=== PATIENT | female | born 1980 | race Caucasian/White ===

== ENCOUNTER 2016-04-02 12:32 | Emergency (ER) | payer OTHER ==
[~2016-04-02] VITALS: Ht 167.6 cm; Wt 200.5 kg
[~2016-04-02 12:32] MED LIST: LORA10CA PO; PROMETHAZINE; RTPRO5 IH
[2016-04-02 12:42] VITALS: Ht 167.6 cm; Wt 200.5 kg
--- NOTE | 2016-04-02 14:01 | ERD ---
ER Documentation Chief Complaint Date/Time DATE: 04/02/16 TIME: 13:59 Chief Complaint PRODUCTIVE COUGH X3 WEEKS HPI 36-year-old female who presents with dry and slightly productive cough for approximately 3 weeks. Patient describes persistence of symptoms and persistent cough with rhinorrhea and nasal congestion. The patient does have some mild chest wall pain with coughing. She denies any dyspnea on exertion, PND or lower extremity swelling. The patient does have a history of heart failure with an ejection fraction of 30%. However she states compliance with medications and denies any lower extremity swelling. No reported fevers. Symptoms similar to son. ROS All systems reviewed and are negative except as per history of present illness. Medications Home Meds Reported Medications Loratadine* (Claritin*) 10 Mg Capsule, 10 MG PO PRN 08/06/12 [Promethazxine] No Conflict Check 08/06/12 Albuterol Sulfate* (Proventil* Neb) 0.5 Ml Nebu, 0.5 ML IH 08/06/12 Allergies Allergies: Coded Allergies: No Known Allergies (Verified Allergy, 08/06/12) PMhx/Soc History of Surgery: Yes ( X3 IN 1997,2000,2006) Anesthesia Reaction: No Hx Neurological Disorder: No Hx Respiratory Disorders: No Hx Cardiac Disorders: No Hx Psychiatric Problems: No Hx Miscellaneous Medical Probl: No Hx Alcohol Use: Yes (SOCIAL AT TIMES) Hx Substance Use: No Hx Tobacco Use: Yes (3 CIGARETTE/D. LAST TIME WAS 4YRS AGO) Smoking Status: Former smoker FmHx Family History: No diabetes Physical Exam Vitals Vital Signs Date Time Temp Pulse Resp B/P Pulse Ox O2 Delivery O2 Flow Rate FiO2 04/02/16 12:42 98.1 99 18 134/78 98 Physical Exam General: Well developed, well nourished, no acute distress Head: Normocephalic, atraumatic. Eyes: Pupils equally reactive, EOM intact ENT: Moist mucous membranes Neck: Supple, no lymphadenopathy Respiratory: Scant wheezing but good aeration, no rales at the bases Cardiovascular: RRR, no murmurs, rubs, or gallops Abdominal: Soft, non-tender, non-distended, no peritoneal signs : Deferred MSK: No edema, no unilateral swelling, 5/5 strength Neurologic: Alert and oriented, moving all extremities, normal speech, no focal weakness, no cerebellar signs Skin: No rash Psych: Normal mood Procedures/MDM EKG, MONITORS, & DIAGNOSTIC IMAGING: Chest x-ray: I reviewed and interpreted a 1 view of the chest Mediastinum: No enlargement Cardiac silhouette: Mild cardiomegaly Airspace: Clear lung wilkes bilaterally without evidence of pneumothorax Bones: No evidence of fracture Radiology Read: IMPRESSION: Suggestion of a patchy hazy opacity in the left lung base which may be traveling sales representative of a earlier resolving infiltrate RPTAT: QQ MEDICAL DECISION MAKING: The patient's cough is most consistent with likely acute bronchitis and viral process. However, the patient does have a history of heart failure with an EF of 30%. The patient does not exhibit alternative signs of heart failure including no JVD, no dyspnea on exertion, no PND, no significant lower extremity swelling. The patient states compliance with her medications. This is again more consistent with likely viral process. I do not believe the laboratory testing is necessary. Chest x-ray would be reasonable. ER COURSE: The patient's chest x-ray does not fit with decompensated congestive heart failure. Question possible infiltrate versus resolving infiltrate. The patient will be started on azithromycin. At this time the patient is safe for discharge home. I did discuss return precautions for worsening shortness of breath, signs of heart failure or difficulty breathing. I kept the patient and/or family informed of laboratory and diagnostic imaging results throughout the emergency room course. DISPOSITION PLAN: We discussed follow up with the patient's primary care doctor within 24 to 48 hours as needed. We also discussed return to the emergency room for worsening symptoms or worsening condition. Discharge Medications: Azithromycin, Ventolin Departure Diagnosis: Primary Impression: Acute bronchitis Bronchitis organism: unspecified organism Qualified Code: J20.9 - Acute bronchitis, unspecified organism Additional Impression: Morbid obesity Obesity type: unspecified obesity type Qualified Code: E66.01 - Morbid obesity, unspecified obesity type Condition: SHERRY Benavidez MD Apr 02, 2016 14:01
--- NOTE | 2016-04-02 14:17 | RADRPT ---
PROCEDURE: XR Chest. CLINICAL INDICATION: Cough TECHNIQUE: AP view of the chest was performed. COMPARISON: 08/10/2012 FINDINGS: There is suggestion of a hazy opacity in the left lung base which may be circulation sales representative of an earlie r resolving infiltrate. The lung volumes are normal. The heart size is normal. The osseous struct ures are intact. IMPRESSION: Suggestion of a patchy hazy opacity in the left lung base which may be circulation sales representative of a earlier r esolving infiltrate RPTAT: QQ .Zaheer King MD, Date Time Electronically viewed and signed by .Zaheer King MD, on 04/02/2016 14:17 .M/
[2016-04-02] MEDS ORDERED: AZIT250T94 PO (14:23)
[2016-04-02] MEDS ORDERED: ALBU18HF INHALATION (14:23)
[2016-04-02] MEDS ORDERED: HYDR-3652 PO (14:25)
== END 2016-04-02 14:40 | disposition home or self-care (01) ==
LOC: FTE 12:32
DX: J20.9 Acute bronchitis, unspecified (principal); E66.01 Morbid (severe) obesity due to excess calories; I50.9 Heart failure, unspecified; Z68.45 Body mass index [BMI] 70 or greater, adult; Z87.891 Personal history of nicotine dependence
CPT/HCPCS: 71010; Z7502

== ENCOUNTER 2016-07-19 17:09 | Emergency (ER) | payer OTHER ==
[~2016-07-19] VITALS: Ht 172.7 cm; Wt 212.5 kg
[~2016-07-19 17:09] MED LIST changes: +ALBU18HF INHALATION; +AZIT250T94 PO; +HYDR-3652 PO
[2016-07-19 17:28] VITALS: Ht 172.7 cm; Wt 212.5 kg
[2016-07-19] MEDS ORDERED: ALBUTEROL 0.083% (NEB) 2.5 MG/3 ML AMP HHN STA (19:11)
[2016-07-19] MEDS ORDERED: IPRATROPIUM (NEB) 0.5 MG/2.5 ML AMP HHN ONE (19:30)
--- NOTE | 2016-07-19 19:37 | RADRPT ---
PROCEDURE: Chest x-ray CLINICAL INDICATION: Shortness of breath TECHNIQUE: Chest single view COMPARISON: None FINDINGS: There is stable mild cardiomegaly. Pulmonary vessels are borderline prominent. No confluent pneumo alannah seen. Costophrenic angles are sharp. IMPRESSION: 1. Stable mild cardiomegaly. 2. Pulmonary vessels borderline prominent RPTAT: HH .Jose Green MD, Date Time Electronically viewed and signed by .Jose Green MD, on 07/19/2016 19:37 .W/
[2016-07-19 20:05] LABS: ADD SCAN DIFF NO
[2016-07-19 20:16] LABS: INR 0.94; PROTIME 12.6 Sec (12.2-14.2)
[2016-07-19 20:17] LABS: ALBUMIN 3.6 g/dl (3.3-4.9); PARTIAL THROMBOPLASTIN TIME 23.5 Sec (25.0-35.0)
[2016-07-19 20:18] LABS: CHLORIDE 94 mmol/L (97-110); POTASSIUM 3.7 mmol/L (3.5-5.1); SODIUM 138 mmol/L (135-144)
[2016-07-19 20:20] LABS: ANION GAP 15 (8-16); BILIRUBIN,INDIRECT 0.3 mg/dl (0-1.1); BILIRUBIN,TOTAL 0.3 mg/dl (0.2-1.3); CARBON DIOXIDE 33 mmol/L (21-31); CREATININE 0.47 mg/dl (0.44-1.00)
[2016-07-19 20:21] LABS: ALANINE AMINOTRANSFERASE 29 IU/L (13-69); ALBUMIN/GLOBULIN RATIO 0.87; ALKALINE PHOSPHATASE 132 IU/L (42-121); ASPARTATE AMINO TRANSFERASE 25 IU/L (15-46); BASOPHILS % 0.3 % (0.0-2.0); BLOOD UREA NITROGEN 10 mg/dl (7-20); CALCIUM 8.8 mg/dl (8.4-10.2); EOSINOPHILS # 0.2 10^3/ul (0.0-0.5); EOSINOPHILS % 1.8 % (0.0-7.0); GLUCOSE 262 mg/dl (70-220); HEMATOCRIT 41.2 % (37.0-47.0); HEMOGLOBIN 13.2 g/dl (12.0-16.0); LYMPHOCYTES # 2.3 10^3/ul (0.8-2.9); LYMPHOCYTES % 24.5 % (15.0-51.0); MEAN CORPUSCULAR HEMOGLOBIN 30.8 pg (29.0-33.0); MEAN PLATELET VOLUME 11.5 fl (7.4-10.4); MONOCYTE # 0.6 10^3/ul (0.3-0.9); NEUTROPHIL # 6.3 10^3/ul (1.6-7.5); NEUTROPHILS % 66.5 % (39.0-77.0); PLATELET COUNT 293 10^3/UL (140-415); RED BLOOD COUNT 4.29 10^6/ul (4.20-5.40); RED CELL DISTRIBUTION WIDTH 13.5 % (11.5-14.5); TOTAL PROTEIN 7.7 g/dl (6.1-8.1); WHITE BLOOD COUNT 9.4 10^3/ul (4.8-10.8)
[2016-07-19 20:30] LABS: B-TYPE NATRIURETIC PEPTIDE 194 PG/ML (0-125)
[2016-07-19 20:44] LABS: TROPONIN-I < 0.012 ng/ml (0.00-0.12)
[2016-07-19] MEDS ORDERED: FURO-109 PO (20:52)
[2016-07-19] MEDS ORDERED: DILT240C79 PO (20:52)
[2016-07-19] MEDS ORDERED: MTF1000T PO (20:53)
[2016-07-19] MEDS ORDERED: GLIP-95 PO (20:53)
[2016-07-19] MEDS ORDERED: CARV25TA79 PO (20:54)
[2016-07-19] MEDS ORDERED: SPIR100T31 PO (20:54)
[2016-07-19] MEDS ORDERED: BENA10TA48 PO (20:55)
[2016-07-19] MEDS ORDERED: ASPI81TA3 PO (20:55)
[2016-07-19] MEDS ORDERED: FUROSEMIDE 20 MG TAB PO ONE (21:00)
[2016-07-19 21:15] VITALS: BP 165/96; PULSE 94; RESP 22
--- NOTE | 2016-07-20 02:08 | ERD ---
ER Documentation Chief Complaint Date/Time DATE: 07/20/16 TIME: 02:05 Chief Complaint SOB, COUGH X1MTH, NEED MED REFIL HPI This is a 36-year-old female that is morbidly obese and has a past medical history of congestive heart failure, diabetes, hypertension. Patient has run out of her medications and states that she has began to feel bilateral leg swelling. Patient also has a chronic cough. Cough is dry and constant. Patient states that her shortness of breath is worse whenever she is walking or whenever she leans back. Patient does have orthopnea and uses 2 pillows at night. Patient denies any fevers or chills. She denies any recent travel. She is not taking oral contraceptives. ROS 12 point review of systems was done, all negative except per HPI. Medications Home Meds Active Scripts Aspirin* (Aspirin* Chew) 81 Mg Tab.chew, 81 MG PO DAILY for 20 Days, TAB.CHEW Prov:PAOLA ENG 07/19/16 Benazepril Hcl* (Benazepril Hcl*) 10 Mg Tablet, 10 MG PO DAILY, #20 TAB Prov:PAOLA ENG 07/19/16 Carvedilol* (Carvedilol*) 25 Mg Tablet, 25 MG PO BID, #40 TAB Prov:PAOLA ENG 07/19/16 Spironolactone* (Spironolactone*) 100 Mg Tablet, 100 MG PO BID for 20 Days, TAB Prov:PAOLA ENG 07/19/16 Metformin* (Glucophage*) 1,000 Mg Tablet, 1000 MG PO BID, #40 TAB Prov:PAOLA ENG 07/19/16 Glipizide* (Glipizide*) 10 Mg Tablet, 10 MG PO AC BREAKFAST for 20 Days, TAB Prov:PAOLA ENG 07/19/16 Diltiazem Hcl* (Cardizem CD*) 240 Mg Cap.sr.24h, 240 MG PO DAILY, #15 CAP Prov:PAOLA ENG 07/19/16 Furosemide* (Lasix*) 40 Mg Tablet, 40 MG PO BID, #20 TAB Prov:PAOLA ENG 07/19/16 Hydrocodone Bit/Homatrop Me-Br ([place] 5-1.5 mg Tablet) 1 Each Tablet, 1 EACH PO BID Y for COUGH, #10 TAB Prov:SHERRY GRAF MD 04/02/16 Azithromycin* (Zithromax*) 250 Mg Tablet, 250 MG PO .ZPACK DIRECTED, #6 TAB TAKE 500 MG (2 TABS) THE FIRST DAY THEN 250 MG (1 TAB) DAYS 2-5 Prov:SHERRY GRAF MD 04/02/16 Albuterol Sulfate* (Ventolin HFA*) 18 Gm Hfa.aer.ad, 2 PUFF INHALATION Q4H, #1 INHALER Prov:SHERRY GRAF MD 04/02/16 Reported Medications Loratadine* (Claritin*) 10 Mg Capsule, 10 MG PO PRN 08/06/12 [Promethazxine] No Conflict Check 08/06/12 Albuterol Sulfate* (Proventil* Neb) 0.5 Ml Nebu, 0.5 ML IH 08/06/12 Allergies Allergies: Coded Allergies: No Known Allergies (Verified Allergy, 08/06/12) PMhx/Soc History of Surgery: Yes ( X3 IN 1997,2000,2006) Anesthesia Reaction: No Hx Neurological Disorder: No Hx Respiratory Disorders: No Hx Cardiac Disorders: Yes (HTN, chf) Hx Psychiatric Problems: No Hx Miscellaneous Medical Probl: Yes (DM) Hx Alcohol Use: Yes (SOCIAL AT TIMES) Hx Substance Use: No Hx Tobacco Use: Yes (3 CIGARETTE/D. LAST TIME WAS 4YRS AGO) Smoking Status: Former smoker Physical Exam Vitals Vital Signs Date Time Temp Pulse Resp B/P Pulse Ox O2 Delivery O2 Flow Rate FiO2 07/19/16 21:15 94 22 165/96 94 Room Air 07/19/16 20:06 Non Rebreather 07/19/16 19:39 100 24 98 21 07/19/16 17:28 98.6 110 22 174/104 94 Physical Exam Const: [] Head: Atraumatic Eyes: Normal Conjunctiva ENT: Normal External Ears, Nose and Mouth. Neck: Full range of motion..~ No meningismus. Resp: Clear to auscultation bilaterally Cardio: Regular rate and rhythm, no murmurs Abd: Soft, non tender, non distended. Normal bowel sounds Skin: No petechiae or rashes Back: No midline or flank tenderness Ext: +2 pitting edema bilaterally. No calf redness or tenderness. Neur: Awake and alert Psych: Normal Mood and Affect Result Diagram: 07/19/16195007/19/161950 Results 24 hrs Laboratory Tests Test 07/19/16 19:51 White Blood Count 9.410^3/ul Red Blood Count 4.2910^6/ul Hemoglobin 13.2g/dl Hematocrit 41.2% Mean Corpuscular Volume 96.0fl Mean Corpuscular Hemoglobin 30.8pg Mean Corpuscular Hemoglobin Concent 32.0g/dl Red Cell Distribution Width 13.5% Platelet Count 25597^3/UL Mean Platelet Volume 11.5fl Neutrophils % 66.5% Lymphocytes % 24.5% Monocytes % 6.0% Eosinophils % 1.8% Basophils % 0.3% Nucleated Red Blood Cells % 0.0/100WBC Neutrophils # 6.310^3/ul Lymphocytes # 2.310^3/ul Monocytes # 0.610^3/ul Eosinophils # 0.210^3/ul Basophils # 0.010^3/ul Nucleated Red Blood Cells # 0.010^3/ul Prothrombin Time 12.6Sec Prothrombin Time Ratio 1.0 INR International Normalized Ratio 0.94 Activated Partial Thromboplast Time 23.5Sec Sodium Level 138mmol/L Potassium Level 3.7mmol/L Chloride Level 94mmol/L Carbon Dioxide Level 33mmol/L Anion Gap 15 Blood Urea Nitrogen 10mg/dl Creatinine 0.47mg/dl Glucose Level 262mg/dl Calcium Level 8.8mg/dl Total Bilirubin 0.3mg/dl Direct Bilirubin 0.00mg/dl Indirect Bilirubin 0.3mg/dl Aspartate Amino Transf (AST/SGOT) 25IU/L Alanine Aminotransferase (ALT/SGPT) 29IU/L Alkaline Phosphatase 132IU/L Troponin I < 0.012ng/ml B-Type Natriuretic Peptide 194PG/ML Total Protein 7.7g/dl Albumin 3.6g/dl Globulin 4.10g/dl Albumin/Globulin Ratio 0.87 Current Medications Medications (Trade) Dose Ordered Sig/Jonathan Route PRN Reason Start Time Stop Time Status Last Admin Dose Admin Albuterol (Proventil 0.083% (Neb)) 5 mg ONCE STAT HHN 07/19/16 19:11 4/25/17 19:12 DC 07/19/16 19:29 Ipratropium Jordan (Atrovent 0.02% (Neb)) 0.5 mg ONCE ONCE HHN 07/19/16 19:30 07/19/16 19:31 DC 07/19/16 19:29 Furosemide (Lasix) 40 mg ONCE ONCE PO 07/19/16 21:00 07/19/16 21:01 DC 07/19/16 21:08 Procedures/MDM EKG was done [address] elevation or T-wave inversion read by dr. wood Differential diagnosis includes but is not limited to; STEMI, dissection, pneumothorax, PE, esophageal rupture, tamponade, pneumonia, pericarditis, GERD, musculoskeletal, endocarditis, anxiety. This is a 36-year-old female presents to the ER with shortness of breath. Patient does have a past medical history of congestive heart failure has not had her medication since Monday. Patient has come to the ER for similar symptoms in the past and is morbidly obese. Patient's blood work was checked and I discussed his case with Dr. Mcintyre. Patient was given a nebulizing treatment in the ER for significantly better. Her labs were not impressive. I extensively discussed diet changes to lose weight. Patient was given a refill of all her medications. Suspicion for pulmonary embolism is low. Patient did have bilateral leg swelling which happens on patient does not take her medications. Her blood pressure was elevated however she is on presents emergency or urgency. She is to start her medications as soon as possible. My medical decision making was shared with the patient she understands and agrees with plan. Departure Diagnosis: Primary Impression: Congestive heart failure Condition: Stable Patient Instructions: Taking Medication Safely Additional Instructions: Call your primary care doctor TOMORROW for an appointment during the next 1-2 days.See the doctor sooner or return here if your condition worsens before your appointment time. PAOLA ENG Jul 20, 2016 02:08
== END 2016-07-19 21:17 | disposition home or self-care (01) ==
LOC: E/R 17:09
DX: I50.9 Heart failure, unspecified (principal); I10 Essential (primary) hypertension; E11.9 Type 2 diabetes mellitus without complications; Z79.82 Long term (current) use of aspirin; Z79.84 Long term (current) use of oral hypoglycemic drugs; Z87.891 Personal history of nicotine dependence
CPT/HCPCS: 71010; 80053; 83880; 84484; 85025; 85610; 85730; 93005; 94664; Z7610; 36415